=== PATIENT | female | born 1950 | race Caucasian/White ===

== ENCOUNTER → 2023-10-25 10:15 | Outpatient (REF) | payer MEDICARE, BC, SELFPAY ==
[2023-10-25 12:22] LABS: ALT (SGPT) 20 U/L (0-35); AST (SGOT) 27 U/L (14-36); Alkaline Phosphatase 89 U/L (38-126); Blood Urea Nitrogen 18 mg/dl (7-17); Calcium 10.2 mg/dl (8.4-10.2); Carbon Dioxide 28 mmol/L (22-30); Chloride 102 mmol/L (98-107); Glucose 93 mg/dl (70-99); Potassium 4.5 mmol/L (3.5-5.1); Sodium 137 mmol/L (135-145); Total Bilirubin 0.4 mg/dl (0.2-1.3); Total Protein 6.7 g/dl (6.3-8.2); eGFR > 60.00
[2023-10-25 12:42] LABS: Erythrocyte Sed Rate 58 mm/hour (0-20)
[2023-10-25 12:48] LABS: Hematocrit 31.4 % (37.0-47.0); Hemoglobin 10.4 g/dL (12.0-16.0); Mean Corp Hgb Conc. 33.1 g/dL (33.0-37.0); Mean Corpuscular Hgb 29.1 pg (27.0-31.0); Red Blood Cell Count 3.57 10^6/uL (4.20-5.40); Red Cell Dist. Width 12.6 % (11.5-14.5); White Blood Cell Count 8.6 10^3/uL (4.8-10.8)
[2023-10-25 12:49] LABS: % Basophils 0.6 % (0-2); % Eosinophils 1.1 % (0-6); % Immature Granulocytes 0.2 % (0-0.5); % Lymphocytes 16.3 % (20.5-51.1); % Monocytes 10.1 % (1.7-9.3); % Neutrophils 71.7 % (42.2-75.2); Absolute Basophils 0.1 10^3/uL (0-0.2); Absolute Eosinophils 0.1 10^3/uL (0-0.7); Absolute Lymphocytes 1.4 10^3/uL (1.2-3.4); Absolute Monocytes 0.9 10^3/uL (0.1-0.6); Absolute Neutrophils 6.1 10^3/uL (1.4-6.5); Nucleated Red Blood Cells % 0 %
[2023-10-26 15:04] LABS: tTG IgA Antibody 5.7 EU/ml (0-19); tTG IgG Antibody 12.7 EU/ml (0-19)
[2023-10-26 19:11] LABS: HLA-B27 Negative (Negative)
[2023-10-26 23:25] LABS: IgA 203 mg/dl (70-400)
[2023-10-27 01:39] LABS: ANA, IgG Reflex to HEp-2 None Detected (None Detected)
[2023-10-27 02:43] LABS: CCP Antibody IgG/IgA 3 Units (0-19)
[2023-10-27 12:55] LABS: Rheumatoid Agglutinin Less Than 10 IU (<10 IU)
[2023-10-27 13:00] LABS: Endomysial IgA Antibody Titer <1:10 (<1:10)
== END ==
LOC: REG 10:15
PROVIDERS: ATTENDING PHYSICIAN Orthopaedic Surgery; FAMILY PHYSICIAN Family Medicine
DX: M25.511 Pain in right shoulder (principal); M25.512 Pain in left shoulder; M25.50 Pain in unspecified joint; E21.3 Hyperparathyroidism, unspecified; L30.9 Dermatitis, unspecified; E03.9 Hypothyroidism, unspecified; K90.0 Celiac disease; M45.9 Ankylosing spondylitis of unspecified sites in spine
CPT/HCPCS: 36415; 80053; 82784; 83516; 83970; 84443; 85025; 85652; 86038; 86200; 86231; 86430; 86812

== ENCOUNTER → 2024-03-27 10:51 | Outpatient (REF) | payer MEDICARE, BC, SELFPAY | LOC: DHCBC/DCA 10:51 | PROVIDERS: ATTENDING PHYSICIAN Internal Medicine Cardiovascular Disease; FAMILY PHYSICIAN Family Medicine | DX: R07.89 Other chest pain (principal); M35.3 Polymyalgia rheumatica; E03.9 Hypothyroidism, unspecified; R79.89 Other specified abnormal findings of blood chemistry; M25.552 Pain in left hip | CPT/HCPCS: 78452; 93017; A9500; J2785 ==

== ENCOUNTER → 2024-09-10 10:31 | Outpatient (REF) | payer MEDICARE, BC, SELFPAY ==
[2024-09-10 11:14] LABS: Ionized Calcium 1.21 mMOL/L (1.15-1.33)
[2024-09-10 14:44] LABS: Free T4 1.79 ng/dl (0.78-2.19); Vitamin D, 25-OH*** 60.3 ng/mL (30-80)
[2024-09-10 14:46] LABS: ALT (SGPT) 26 U/L (0-35); AST (SGOT) 32 U/L (14-36); Albumin 4.5 g/dl (3.5-5.0); Alkaline Phosphatase 33 U/L (38-126); Blood Urea Nitrogen 21 mg/dl (7-17); Calcium 10.1 mg/dl (8.4-10.2); Carbon Dioxide 24 mmol/L (22-30); Chloride 108 mmol/L (98-107); Glucose 83 mg/dl (70-99); Potassium 4.2 mmol/L (3.5-5.1); Sodium 140 mmol/L (135-145); Total Bilirubin 0.6 mg/dl (0.2-1.3); Total Protein 6.6 g/dl (6.3-8.2); eGFR 59.86
[2024-09-10 14:57] LABS: TSH 1.73 uIU/ml (0.47-4.68)
[2024-09-11 10:48] LABS: Intact PTH 120.3 pg/ml (13.6-85.8)
== END ==
LOC: RAD 10:31
PROVIDERS: ATTENDING PHYSICIAN Internal Medicine Endocrinology, Diabetes & Metabolism; FAMILY PHYSICIAN Family Medicine; OTHER PHYSICIAN Internal Medicine Rheumatology
DX: M81.0 Age-related osteoporosis without current pathological fracture (principal); E21.3 Hyperparathyroidism, unspecified; E03.9 Hypothyroidism, unspecified
CPT/HCPCS: 36415; 77080; 77081; 80053; 82306; 82330; 83970; 84439; 84443

== ENCOUNTER → 2024-09-18 13:03 | Outpatient (REF) | payer MEDICARE, BC, SELFPAY | LOC: HWWDC 13:03 | PROVIDERS: ATTENDING PHYSICIAN Advanced Practice Midwife; FAMILY PHYSICIAN Family Medicine | DX: Z12.31 Encounter for screening mammogram for malignant neoplasm of breast (principal) | CPT/HCPCS: 77063; 77067 ==